=== PATIENT | male | born 1980 | race Caucasian/White ===

== ENCOUNTER 2020-04-27 18:17 | Emergency (ER) | payer MEDICAID ==
[~2020-04-27] VITALS: Ht 172.7 cm; Wt 90.0 kg
[2020-04-27] MEDS ORDERED: SODIUM CHLORIDE 0.9% 1,000 ML IV ONE (19:00)
[2020-04-27 19:20] LABS: BASOPHILS % 0.8 % (0.0-2.0); EOSINOPHILS % 2.6 % (0.0-5.0); HEMATOCRIT. 47.8 % (42.0-52.0); HEMOGLOBIN. 16.4 g/dL (14.0-18.0); LYMPHOCYTES % 31.6 % (20.0-50.0); MEAN CORPUSCULAR HEMOGLOBIN 30.5 pg (28.0-32.0); MEAN PLATELET VOLUME 8.2 fl (7.4-10.4); MONOCYTES % 5.2 % (2.0-8.0); NEUTROPHILS % 59.8 % (40.0-76.0); PLATELET 239 x1000/uL (130-400); RED BLOOD CELL COUNT 5.37 mill/uL (4.7-6.1); RED CELL DISTRIBUTION WIDTH 12.9 % (11.6-14.6)
[2020-04-27 19:26] LABS: CLARITY URINE CLEAR (CLEAR); COLOR URINE YELLOW (YELLOW); KETONES URINE NEGATIVE (NEGATIVE); LEUKOCYTE ESTERASE URINE NEGATIVE (NEGATIVE); NITRITE URINE NEGATIVE (NEGATIVE); OCCULT BLOOD URINE NEGATIVE (NEGATIVE); PH URINE 5.5 (4.5-8.0); PROTEIN URINE NEGATIVE (NEGATIVE); SPECIFIC GRAVITY URINE 1.038 (1.005-1.030); UROBILINOGEN URINE 0.2 E.U./dL (0.2-1.0)
[2020-04-27 19:26] LABS: CHLORIDE 93 mEq/L (98-107)
[2020-04-27] MEDS ORDERED: SODIUM CHLORIDE 0.9% 1,000 ML IV NR (19:30)
[2020-04-27 19:34] LABS: BETA HYDROXYBUTYRATE 0.1 mMol/L (0.0-0.3)
[2020-04-27] MEDS ORDERED: FLUCONAZOLE 150MG TABLET PO NR (20:15)
[2020-04-27] MEDS ORDERED: KETOCONAZOLE 2% CREAM 15GM TOP SCH (23:00)
[2020-04-28 01:48] VITALS: BP 174/76
== END 2020-04-28 03:00 | disposition home or self-care (01) ==
LOC: ER 18:17
DX: E11.65 Type 2 diabetes mellitus with hyperglycemia (principal); E86.0 Dehydration; N48.1 Balanitis; B35.6 Tinea cruris; E78.00 Pure hypercholesterolemia, unspecified; I10 Essential (primary) hypertension
CPT/HCPCS: 36415; 80053; 81003; 82010; 82962; 85025; 93005; 96360; 99285; J7030

== ENCOUNTER 2021-04-03 12:30 | Emergency (ER) | payer MEDICAID ==
[~2021-04-03] VITALS: Ht 165.1 cm; Wt 91.0 kg
[2021-04-03 12:33] VITALS: BP 132/85
[2021-04-03] MEDS ORDERED: SODIUM CHLORIDE 0.9% 1,000 ML IV ONE (12:45)
== END 2021-04-03 16:54 | disposition left against medical advice (07) ==
LOC: ER 12:30
DX: S70.362A Insect bite (nonvenomous), left thigh, initial encounter (principal); E11.9 Type 2 diabetes mellitus without complications; Z91.14 Patient's other noncompliance with medication regimen; W57.XXXA Bitten or stung by nonvenomous insect and other nonvenomous arthropods, initial encounter; Y93.89 Activity, other specified; Y92.018 Other place in single-family (private) house as the place of occurrence of the external cause
CPT/HCPCS: 82962; 99281; J7030

== ENCOUNTER 2021-12-27 16:35 | Emergency (ER) | payer MEDICAID ==
[~2021-12-27] VITALS: Ht 172.7 cm; Wt 80.0 kg
[~2021-12-27 16:35] MED LIST: AMLO5TAB88 PO; GABA-532 PO; GLIP5TAB12 PO; LANTUSUD SUBCUT; LOSA25TA3 PO
[2021-12-27] MEDS ORDERED: IBUP-2029 MT (19:28)
[2021-12-27] MEDS ORDERED: AMOX1TAB16 MT (19:28)
[2021-12-27] MEDS ORDERED: IBUPROFEN 600MG TABLET PO ONE (19:30)
[2021-12-27 19:39] VITALS: BP 164/103
== END 2021-12-27 19:38 | disposition home or self-care (01) ==
LOC: ER 16:35
DX: L03.114 Cellulitis of left upper limb (principal); L03.113 Cellulitis of right upper limb; L02.414 Cutaneous abscess of left upper limb; L02.413 Cutaneous abscess of right upper limb
CPT/HCPCS: 99283

== ENCOUNTER 2022-01-11 15:36 | Inpatient (IN) | payer MEDICAID ==
[~2022-01-11] VITALS: Ht 182.9 cm; Wt 111.6 kg
[~2022-01-11 15:36] MED LIST changes: +AMOX1TAB16 MT; +IBUP-2029 MT
[2022-01-11] MEDS ORDERED: MORPHINE SULFATE 4 MG/ML CPJ (NOT FOR IM USE) IV ONE (16:00)
[2022-01-11] MEDS ORDERED: SODIUM CHLORIDE 0.9% 1,000 ML IV ONE ×2 (16:00→17:30)
[2022-01-11 16:27] LABS: BASOPHILS % 0.3 % (0.0-2.0); EOSINOPHILS % 0.3 % (0.0-5.0); HEMATOCRIT. 42.6 % (42.0-52.0); HEMOGLOBIN. 14.4 g/dL (14.0-18.0); LYMPHOCYTES % 10.5 % (20.0-50.0); MEAN CORPUSCULAR HEMOGLOBIN 30.4 pg (28.0-32.0); MEAN CORPUSCULAR VOLUME 90.2 fL (80.0-94.0); MEAN PLATELET VOLUME 7.6 fl (7.4-10.4); MONOCYTES % 5.8 % (2.0-8.0); NEUTROPHILS % 83.1 % (40.0-76.0); PLATELET 361 x1000/uL (130-400); RED BLOOD CELL COUNT 4.73 mill/uL (4.7-6.1); RED CELL DISTRIBUTION WIDTH 13.8 % (11.6-14.6)
[2022-01-11 16:32] LABS: CHLORIDE 88 mEq/L (98-107)
[2022-01-11 16:33] LABS: PROTHROMBIN TIME 11.1 sec (9.6-11.0)
[2022-01-11 16:39] LABS: ETHANOL BLOOD < 10 mg/dL
[2022-01-11] MEDS ORDERED: INSULIN REGULAR (HUMULIN R) 300UNITS/3ML VIAL IV ONE (17:00)
[2022-01-11] MEDS ORDERED: CEFTRIAXONE 1 G PREMIX 50 ML IV ONE (18:45)
[2022-01-11] MEDS ORDERED: IOHEXOL-350 100 ML BOTTLE ONE (20:11)
[2022-01-11 21:00] VITALS: BP 148/92
[2022-01-11] MEDS ORDERED: SODIUM CHLORIDE 0.9% 1,000 ML IV SCH (22:45)
[2022-01-11] MEDS ORDERED: HYDROMORPHONE HCL/PF 2MG/ML CPJ IV PRN (22:45)
[2022-01-11] MEDS ORDERED: CEFTRIAXONE 1 G PREMIX 50 ML IV SCH (22:45)
[2022-01-11] MEDS ORDERED: GUAIFENESIN 200MG/10ML SUGAR FREE UDC PO PRN (22:45)
[2022-01-11] MEDS ORDERED: ACETAMINOPHEN 325MG TABLET PO PRN (22:45)
[2022-01-11] MEDS ORDERED: HYDROCODONE/ACETAMINOPHEN 5/325MG TABLET PO PRN (22:45)
[2022-01-11] MEDS ORDERED: DOCUSATE SODIUM 100MG CAPSULE PO PRN (22:45)
[2022-01-11] MEDS ORDERED: ONDANSETRON HCL 4MG/2ML INJ IV PRN (22:45)
[2022-01-11] MEDS ORDERED: MAGNESIUM/ALUMINUM HYDROXIDE/SIMETHICONE 30ML UDC PO PRN (22:45)
[2022-01-11] MEDS ORDERED: NALOXONE HCL 0.4MG/ML VIAL IV PRN (23:45)
[2022-01-12 04:00] VITALS: BP 135/84
[2022-01-12] MEDS: TRAMADOL 50MG TABLET PO PRN ×2 (05:14→05:58)
[2022-01-12 05:58] VITALS: BP 135/84
[2022-01-12 07:12] LABS: BASOPHILS % 0.4 % (0.0-2.0); EOSINOPHILS % 2.2 % (0.0-5.0); HEMOGLOBIN. 13.1 g/dL (14.0-18.0); LYMPHOCYTES % 20.7 % (20.0-50.0); MEAN CORPUSCULAR HEMOGLOBIN 30.4 pg (28.0-32.0); MEAN CORPUSCULAR VOLUME 88.3 fL (80.0-94.0); MEAN PLATELET VOLUME 7.5 fl (7.4-10.4); MONOCYTES % 6.4 % (2.0-8.0); NEUTROPHILS % 70.3 % (40.0-76.0); PLATELET 316 x1000/uL (130-400); RED CELL DISTRIBUTION WIDTH 13.7 % (11.6-14.6)
[2022-01-12 08:14] LABS: CHLORIDE 96 mEq/L (98-107)
[2022-01-12 08:31] LABS: HDL CHOLESTEROL 42 mg/dL (40-59); LDL CHOLESTEROL 72 mg/dL (5-100)
[2022-01-12] MEDS ORDERED: AMLODIPINE 10MG TABLET PO SCH (09:00)
[2022-01-12] MEDS ORDERED: INFLUENZA VACCINE 05/PF 0.5 ML SYRINGE IM ONE (09:00)
[2022-01-12] MEDS ORDERED: PNEUMOCOCCAL 23-VAL P-SAC VAC 0.5 ML IM ONE (09:00)
[2022-01-12] MEDS ORDERED: BLOOD SUGAR DIAGNOSTIC STRIP TEST SCH (10:00)
[2022-01-12] MEDS ORDERED: INSULIN LISPRO 100 UNITS/ML SUBCUT SCH (10:00)
[2022-01-12] MEDS ORDERED: DEXTROSE 50% WATER 50ML SYRINGE IV PRN (10:00)
[2022-01-12] MEDS ORDERED: LOSARTAN POTASSIUM 25 MG TABLET PO SCH (11:45)
[2022-01-12] MEDS ORDERED: VANCOMYCIN 1G PREMIX 200 ML IV SCH ×2 (12:30→14:00)
[2022-01-12] MEDS ORDERED: LEVOFLOXACIN 500MG TABLET PO SCH (13:00)
[2022-01-12] MEDS ORDERED: GABAPENTIN 300MG CAPSULE PO SCH (14:00)
[2022-01-12] MEDS ORDERED: GLIPIZIDE 5MG TABLET PO SCH (17:20)
[2022-01-12] MEDS ORDERED: CEFTRIAXONE 1,000 MG in DEXTROSE 5% WATER 50 ML IV SCH (19:00)
[2022-01-12] MEDS ORDERED: INSULIN GLARGINE 100 UNITS/ML SUBCUT SCH ×2 (22:00)
== END 2022-01-12 15:03 | disposition left against medical advice (07) | DRG 501 ==
LOC: ER 15:36 → 6WST 17:26 → EDBEDREQTM 17:29 → EDBEDREQ 17:29 → ENRESERV 18:47
PROVIDERS: ADMIT Hospitalist; ATTEND Hospitalist
DX: N45.2 Orchitis (principal); E87.1 Hypo-osmolality and hyponatremia; E11.65 Type 2 diabetes mellitus with hyperglycemia; D64.9 Anemia, unspecified; E78.00 Pure hypercholesterolemia, unspecified; F20.9 Schizophrenia, unspecified; I10 Essential (primary) hypertension; Z53.29 Procedure and treatment not carried out because of patient's decision for other reasons; Z79.4 Long term (current) use of insulin; Z79.899 Other long term (current) drug therapy
CPT/HCPCS: 36415; 72191; 76870; 80053; 80061; 80320; 82010; 82962; 83036; 83605; 85025; 86850; 86900; 93976; 99285; J0696; J1170; J1815; J2270; J3370; J7030; J7060; Q9967; G0480

== ENCOUNTER 2022-02-05 22:39 | Inpatient (IN) | payer MEDICAID, OTHER ==
[~2022-02-05] VITALS: Ht 177.8 cm; Wt 108.9 kg
[2022-02-06] MEDS ORDERED: FLUCONAZOLE 200MG/100ML PREMIX IV ONE (07:30)
[2022-02-06] MEDS ORDERED: SODIUM CHLORIDE 0.9% 1,000 ML IV ONE (07:30)
[2022-02-06] MEDS ORDERED: INSULIN REGULAR (HUMULIN R) 300UNITS/3ML VIAL IV ONE ×2 (07:30→10:04)
[2022-02-06] MEDS ORDERED: FLUCONAZOLE 200 MG/100ML BAG 100 ML IV SCH (07:30)
[2022-02-06] MEDS ORDERED: MORPHINE SULFATE 4 MG/ML CPJ (NOT FOR IM USE) IV ONE ×2 (07:30→10:05)
[2022-02-06] MEDS ORDERED: CEFTRIAXONE 1 G PREMIX 50 ML IV ONE ×2 (07:30→10:04)
[2022-02-06 09:37] LABS: BASOPHILS % 0.5 % (0.0-2.0); EOSINOPHILS % 2.5 % (0.0-5.0); HEMATOCRIT. 41.2 % (42.0-52.0); HEMOGLOBIN. 14.4 g/dL (14.0-18.0); LYMPHOCYTES % 28.9 % (20.0-50.0); MEAN CORPUSCULAR HEMOGLOBIN 30.5 pg (28.0-32.0); MEAN CORPUSCULAR VOLUME 87.4 fL (80.0-94.0); MEAN PLATELET VOLUME 7.7 fl (7.4-10.4); MONOCYTES % 7.5 % (2.0-8.0); NEUTROPHILS % 60.6 % (40.0-76.0); PLATELET 267 x1000/uL (130-400); RED BLOOD CELL COUNT 4.72 mill/uL (4.7-6.1)
[2022-02-06 09:43] LABS: CHLORIDE 100 mEq/L (98-107)
[2022-02-06] MEDS ORDERED: IOHEXOL-300 100 ML BOTTLE ONE (13:11)
[2022-02-06 15:20] VITALS: BP 121/84
[2022-02-06] MEDS ORDERED: ONDANSETRON HCL 4MG/2ML INJ IV PRN (15:45)
[2022-02-06] MEDS ORDERED: DEXTROSE 50% WATER 50ML SYRINGE IV PRN (15:45)
[2022-02-06 16:10] VITALS: BP 115/69
[2022-02-06] MEDS ORDERED: INSULIN LISPRO 100 UNITS/ML SUBCUT NR (16:30)
[2022-02-06] MEDS: HYDROCODONE/ACETAMINOPHEN 5/325MG TABLET PO PRN (16:59)
[2022-02-06] MEDS: LEVOFLOXACIN 500MG PREMIX 100 ML IV SCH (17:00)
[2022-02-06] MEDS ORDERED: VANCOMYCIN 1500MG in DEXTROSE 5% WATER 250ML IV NR (17:00)
[2022-02-06] MEDS: BLOOD SUGAR DIAGNOSTIC STRIP TEST SCH ×2 (18:09→21:00)
[2022-02-06] MEDS: INSULIN LISPRO 100 UNITS/ML SUBCUT SCH ×2 (18:15→21:00)
[2022-02-06] MEDS: DIPHENHYDRAMINE 50MG CAPSULE PO PRN (19:02)
[2022-02-06 20:00] VITALS: BP 118/84
[2022-02-06] MEDS ORDERED: INSULIN GLARGINE 100 UNITS/ML SUBCUT SCH (22:00)
[2022-02-07] VITALS: BP 120/82
[2022-02-07 04:00] VITALS: BP 118/80
[2022-02-07] MEDS ORDERED: VANCOMYCIN 1.25GM PMX (XELLIA) 250 ML IV SCH (06:00)
[2022-02-07] MEDS: BLOOD SUGAR DIAGNOSTIC STRIP TEST SCH ×4 (06:43→20:25)
[2022-02-07] MEDS: INSULIN LISPRO 100 UNITS/ML SUBCUT SCH ×4 (07:06→21:36)
[2022-02-07 08:00] VITALS: BP 111/72
[2022-02-07] MEDS: INSULIN GLARGINE 100 UNITS/ML SUBCUT SCH ×2 (10:38→21:37)
[2022-02-07 12:00] VITALS: BP 128/85
[2022-02-07] MEDS: VANCOMYCIN 1G PREMIX 200 ML IV SCH ×2 (13:15→21:43)
[2022-02-07] MEDS: GABAPENTIN 300MG CAPSULE PO SCH ×2 (13:15→21:37)
[2022-02-07] MEDS: HYDROCODONE/ACETAMINOPHEN 5/325MG TABLET PO PRN ×2 (13:18→21:40)
[2022-02-07 16:00] VITALS: BP 120/82
[2022-02-07] MEDS ORDERED: NALOXONE HCL 0.4MG/ML VIAL IV PRN (16:15)
[2022-02-07] MEDS: LEVOFLOXACIN 500MG PREMIX 100 ML IV SCH (16:31)
[2022-02-07] MEDS: DIPHENHYDRAMINE 50MG CAPSULE PO PRN (16:31)
[2022-02-07 20:00] VITALS: BP 126/79
[2022-02-08] VITALS: BP 112/27
[2022-02-08 03:23] LABS: CHLORIDE 102 mEq/L (98-107)
[2022-02-08 04:00] VITALS: BP 109/65
[2022-02-08] MEDS: VANCOMYCIN 1G PREMIX 200 ML IV SCH ×3 (05:30→21:41)
[2022-02-08] MEDS: GABAPENTIN 300MG CAPSULE PO SCH ×3 (05:33→21:40)
[2022-02-08] MEDS: BLOOD SUGAR DIAGNOSTIC STRIP TEST SCH ×4 (07:20→21:26)
[2022-02-08] MEDS ORDERED: INSU100I28 SQ (07:49)
[2022-02-08] MEDS ORDERED: SULF1TAB48 MT (07:49)
[2022-02-08] MEDS ORDERED: AMOX1TAB16 MT (07:49)
[2022-02-08] MEDS ORDERED: NYST15OI TP (07:49)
[2022-02-08] MEDS ORDERED: GABA-532 PO (07:50)
[2022-02-08] MEDS: HYDROCODONE/ACETAMINOPHEN 5/325MG TABLET PO PRN ×3 (08:32→18:47)
[2022-02-08] MEDS: INSULIN LISPRO 100 UNITS/ML SUBCUT SCH ×4 (08:37→21:40)
[2022-02-08 12:00] VITALS: BP 103/69
[2022-02-08] MEDS: LEVOFLOXACIN 500MG TABLET PO SCH (13:11)
[2022-02-08] MEDS: INSULIN GLARGINE 100 UNITS/ML SUBCUT SCH ×2 (13:16→21:39)
[2022-02-08 16:00] VITALS: BP 100/63
[2022-02-08 16:41] VITALS: BP 114/91
[2022-02-08 20:00] VITALS: BP 132/76
[2022-02-08] MEDS: DIPHENHYDRAMINE 50MG CAPSULE PO PRN (21:40)
[2022-02-09] VITALS: BP 138/67
[2022-02-09 04:00] VITALS: BP 145/71
[2022-02-09] MEDS: VANCOMYCIN 1G PREMIX 200 ML IV SCH (05:41)
[2022-02-09] MEDS: GABAPENTIN 300MG CAPSULE PO SCH (05:41)
[2022-02-09] MEDS: INSULIN LISPRO 100 UNITS/ML SUBCUT SCH (07:50)
[2022-02-09 08:00] VITALS: BP 118/94
[2022-02-09] MEDS: BLOOD SUGAR DIAGNOSTIC STRIP TEST SCH ×2 (08:15→12:22)
[2022-02-09 12:00] VITALS: BP 136/89
[2022-02-09] MEDS: LEVOFLOXACIN 500MG TABLET PO SCH (12:22)
[2022-02-09] MEDS: INSULIN GLARGINE 100 UNITS/ML SUBCUT SCH (12:26)
[2022-02-09 12:51] VITALS: BP 118/74
== END 2022-02-09 16:35 | disposition home or self-care (01) | DRG 501 ==
LOC: ER 22:39 → 6EST 02-06 13:33 → EDBEDREQSVC 02-06 13:37 → EDBEDREQ 02-06 13:37 → EDBEDREQTM 02-06 13:37 → ENRESERV 02-06 14:42 → 6EST 02-06 15:20
PROVIDERS: ADMIT Internal Medicine; ATTEND Internal Medicine
DX: N49.2 Inflammatory disorders of scrotum (principal); E44.1 Mild protein-calorie malnutrition; E87.1 Hypo-osmolality and hyponatremia; E11.65 Type 2 diabetes mellitus with hyperglycemia; E78.00 Pure hypercholesterolemia, unspecified; R74.01 Elevation of levels of liver transaminase levels; I10 Essential (primary) hypertension; Z59.00 Homelessness unspecified; Z79.2 Long term (current) use of antibiotics; Z79.899 Other long term (current) drug therapy; Z68.34 Body mass index [BMI] 34.0-34.9, adult
CPT/HCPCS: 36415; 72193; 80048; 80053; 80202; 82962; 85025; 99285; J0696; J1450; J1815; J1956; J2270; J3370; J7030; J7060; Q0163; Q9967